=== PATIENT | male | born 1985 | race Caucasian/White ===

== ENCOUNTER 2017-07-12 12:44 | Emergency (ER) | payer MEDICAID, OTHER ==
[2017-07-12 16:59] LABS: ADD MAN DIFF? NO; BASOPHILS % 0.3 % (0.0-2.0); EOSINOPHILS # 0.1 10^3/ul (0.0-0.5); EOSINOPHILS % 0.7 % (0.0-7.0); HEMATOCRIT 43.8 % (42.0-52.0); HEMOGLOBIN 15.5 g/dl (14.0-18.0); LYMPHOCYTES # 1.8 10^3/ul (0.8-2.9); LYMPHOCYTES % 19.1 % (15.0-51.0); MEAN CORPUSCULAR HEMOGLOBIN 30.6 pg (29.0-33.0); MEAN CORPUSCULAR HGB CONC 35.4 g/dl (32.0-37.0); MEAN CORPUSCULAR VOLUME 86.6 fl (82.0-101.0); MEAN PLATELET VOLUME 9.3 fl (7.4-10.4); MONOCYTE # 1.1 10^3/ul (0.3-0.9); MONOCYTES % 12.1 % (0.0-11.0); NEUTROPHIL # 6.3 10^3/ul (1.6-7.5); NEUTROPHILS % 67.6 % (39.0-77.0); PLATELET COUNT 280 10^3/UL (140-415); RED BLOOD COUNT 5.06 10^6/ul (4.70-6.10); RED CELL DISTRIBUTION WIDTH 11.6 % (11.5-14.5)
[2017-07-12 16:59] LABS: WHITE BLOOD COUNT 9.4 10^3/ul (4.8-10.8)
[2017-07-12 17:01] LABS: ADD UMIC NO; UR ASCORBIC ACID NEGATIVE (NEGATIVE); UR BILIRUBIN (Dip) NEGATIVE (NEGATIVE); UR BLOOD (Dip) NEGATIVE (NEGATIVE); UR CLARITY CLEAR (CLEAR); UR COLOR YELLOW (YELLOW); UR GLUCOSE (Dip) NEGATIVE (NEGATIVE); UR KETONES (Dip) NEGATIVE (NEGATIVE); UR LEUKOCYTE ESTERASE (Dip) NEGATIVE Leu/ul (NEGATIVE); UR NITRITE (Dip) NEGATIVE (NEGATIVE); UR SPECIFIC GRAVITY (Dip) 1.008 (1.003-1.030); UR TOTAL PROTEIN (Dip) NEGATIVE (NEGATIVE); UR UROBILINOGEN (Dip) NEGATIVE (NEGATIVE)
[2017-07-12] MEDS: KETOROLAC 30 MG INJ IV (17:14)
[2017-07-12] MEDS: SOD CHLORIDE 0.9% 1,000 ML IV (17:14)
[2017-07-12 17:26] LABS: ALANINE AMINOTRANSFERASE 85 IU/L (13-69); ALBUMIN 4.8 g/dl (3.3-4.9); ALBUMIN/GLOBULIN RATIO 1.14; ALKALINE PHOSPHATASE 79 IU/L (42-121); ANION GAP 17 (8-16); ASPARTATE AMINO TRANSFERASE 93 IU/L (15-46); BILIRUBIN,INDIRECT 0.9 mg/dl (0-1.1); BILIRUBIN,TOTAL 0.9 mg/dl (0.2-1.3); BLOOD UREA NITROGEN 9 mg/dl (7-20); CALCIUM 9.4 mg/dl (8.4-10.2); CARBON DIOXIDE 28 mmol/L (21-31); CHLORIDE 100 mmol/L (97-110); CREATININE 0.81 mg/dl (0.61-1.24); GLUCOSE 85 mg/dl (70-220); LIPASE 78 U/L (23-300); POTASSIUM 4.6 mmol/L (3.5-5.1); SODIUM 140 mmol/L (135-144)
[2017-07-12] MEDS: CLINDAMYCIN 900 MG/D5W (PMX) 50 ML IVPB (17:48)
[2017-07-12] MEDS: AZITHROMYCIN 250 MG TAB PO (18:04)
[2017-07-12] MEDS: CEFTRIAXONE 250 MG INJ IM (18:07)
[2017-07-12] MEDS: CEFTRIAXONE 250 MG INJ IVPB (19:01)
[2017-07-12 20:11] LABS: RAPID PLASMA REAGIN REACTIVE (NR)
[2017-07-14 21:04] LABS: FLUORESCENT TREPONEMAL AB NON-REACTIVE (NON-REACTIVE)
== END 2017-07-12 19:32 | disposition home or self-care (01) ==
LOC: FTE 12:44
DX: I88.9 Nonspecific lymphadenitis, unspecified (principal)
CPT/HCPCS: 36415; 76536; 80053; 81003; 83690; 85025; 86592; 87536; 87591; 96374; 96375; 99285-25